=== PATIENT | female | born 1970 | race Hispanic/Latino ===

== ENCOUNTER 2021-06-26 13:05 | Emergency (ER) | payer OTHER, MEDICARE ==
[2021-06-26 16:03] LABS: Basophils # (Auto) 0.1 K/mm3 (0.0-0.1); Basophils % (Auto) 0.6 % (0.0-1.8); Eosinophils # (Auto) 0.2 K/mm3 (0.0-0.4); Eosinophils % (Auto) 1.3 % (0.0-4.3); Hematocrit 39.5 % (30.3-42.9); Hemoglobin 13.2 gm/dl (10.1-14.3); Lymphocytes % (Auto) 7.6 % (13.4-35.0); Mean Corpuscular HGB Conc 33 % (30-34); Mean Corpuscular Volume 89 fl (79-97); Monocytes % (Auto) 7.7 % (0.0-7.3); Platelet Count 266 K/mm3 (140-440); Red Blood Count 4.42 M/mm3 (3.65-5.03); Red Cell Distribution Width 16.1 % (13.2-15.2)
[2021-06-26 16:14] LABS: INR 0.92 (0.87-1.13)
--- NOTE | 2021-06-26 16:22 | XRay Report ---
XR chest 1V ap INDICATION / CLINICAL INFORMATION: CP. COMPARISON: None available. FINDINGS: SUPPORT DEVICES: Right chest wall port catheter tip terminates over the SVC. HEART /PULMONARY VASCULATURE: No significant abnormality. LUNGS / PLEURA: No significant pulmonary or pleural abnormality. No pneumothorax. IMPRESSION: 1. No acute findings. Signer Name: Rolan Coley MD Signed: 06/26/2021 4:18 PM Workstation Name: [id number] [id number]
[2021-06-26 16:25] LABS: Alanine Aminotransferase 25 units/L (7-56); Albumin 3.9 g/dL (3.9-5); BUN/Creatinine Ratio 19; Blood Urea Nitrogen 17 mg/dL (7-17); Calcium 9.7 mg/dL (8.4-10.2); Hemolysis Index 16
[2021-06-26] MEDS ORDERED: HYDROcodone/ACETAMINOPHEN 5-325 MG TAB PO ONE (16:40)
--- NOTE | 2021-06-26 16:57 | Emergency Department Report ---
HPI - HPI HPI: 51-year-old female presents to the emergency department with a complaint of some midsternal to left-sided chest pain and palpitations that started just prior to presentation. The patient pulled into the hospital property in order to fill with her navigation and the symptoms started at this time. She felt weak and called 911 and was brought in by EMS. She has a history of asthma, diabetes, hypertension, aortic regurgitation, gammaglobulin deficiency, and says that she often has "PVCs." The patient follows with Dr. Dan for cardiology and said that she recently had an echocardiogram done but has not yet had the results. She has not taken anything for symptoms prior to presentation. Currently she says that the chest pain is a dull pain, 2 out of 10 in intensity. No known aggravating or alleviating factors. <BIN HUTCHISON - Last Filed: 06/27/21 17:01> <CHAU DURBIN - Last Filed: 06/27/21 21:33> - General Chief Complaint: Chest Pain Time Seen by Provider: 06/26/21 15:20 ED Past Medical Hx - Past Medical History Hx Hypertension: Yes Hx Diabetes: Yes Hx Asthma: Yes Additional medical history: aortic regurgitation <BIN HUTCHISON - Last Filed: 06/27/21 17:01> <CHUA DURBIN - Last Filed: 06/27/21 21:33> - Medications Home Medications: Home Medications Medication Instructions Recorded Confirmed Last Taken Type Albuterol Sulfate [Albuterol 0.63% 0.63 mg IH TID PRN 06/26/21 06/26/21 Unknown History NEBS] Cyclobenzaprine [Flexeril] 10 mg PO TID PRN 06/26/21 06/26/21 Unknown History Dexlansoprazole [Dexilant] 60 mg PO QDAY 06/26/21 06/26/21 Unknown History FLUoxetine [PROzac] 20 mg PO QDAY 06/26/21 06/26/21 Unknown History Fluticasone/Salmeterol [Advair 1 puff IH BID 06/26/21 06/26/21 Unknown History Diskus 500-50 mcg] Gabapentin [Neurontin] 400 mg PO Q8HR PRN 06/26/21 06/26/21 Unknown History Immun Globg(IgG)/Malt/Iga Ov50 60 ml IV QMONTH 06/26/21 06/26/21 Unknown History [Octagam 10% Vial] Irbesartan [Avapro] 75 mg PO QHS 06/26/21 06/26/21 Unknown History Montelukast [Singulair] 10 mg PO QPM 06/26/21 06/26/21 Unknown History Multivitamin with Iron 1 tab QDAY 06/26/21 06/26/21 Unknown History [Multivitamins with Iron] Omeprazole 40 mg PO QAM 06/26/21 06/26/21 Unknown History Pravastatin [Pravachol] 20 mg PO QHS 06/26/21 06/26/21 Unknown History Semaglutide [Ozempic] 1 mg SQ QWEEK 06/26/21 06/26/21 Unknown History dilTIAZem HCl [Diltiazem 24Hr ER 180 mg PO QHS 06/26/21 06/26/21 Unknown History (Cd)] medroxyPROGESTERone ACETATE 150 mg IM [id number] 06/26/21 06/26/21 Unknown History [Depo-Provera] metFORMIN [Glucophage] 500 mg PO BID 06/26/21 06/26/21 Unknown History ED Review of Systems ROS: Stated complaint: chest pain Other details as noted in HPI Comment: All other systems reviewed and negative Constitutional: denies: chills, fever Eyes: denies: eye pain, vision change ENT: denies: ear pain, throat pain Respiratory: denies: cough, wheezing Cardiovascular: chest pain, palpitations. denies: edema Gastrointestinal: denies: abdominal pain, vomiting Genitourinary: denies: dysuria, discharge Musculoskeletal: denies: back pain, arthralgia Skin: denies: rash Neurological: denies: headache, weakness <BIN HUTCHISON - Last Filed: 06/27/21 17:01> ROS: Stated complaint: chest pain Other details as noted in HPI <CHAU DURBIN - Last Filed: 06/27/21 21:33> Physical Exam - Physical Exam Vital Signs: Vital Signs 06/26/21 13:09 Temperature 98.0 F Pulse Rate 100 H Respiratory 16 Rate Blood Pressure 120/80 [Right] O2 Sat by Pulse 98 Oximetry Physical Exam: GENERAL: The patient is well-developed well-nourished. HENT: Normocephalic. Atraumatic. Patient has moist mucous membranes. EYES: Extraocular motions are intact. NECK: Supple. Trachea is midline. CHEST/LUNGS: Clear to auscultation. There is no respiratory distress noted. HEART/CARDIOVASCULAR: Regular. There is no tachycardia. There is no murmur. ABDOMEN: Abdomen is soft, nontender. Patient has normal bowel sounds. Morbidly obese habitus. SKIN: Skin is warm and dry. NEURO: The patient is awake, alert, and oriented. The patient is cooperative. The patient has no focal neurologic deficits. Normal speech. MUSCULOSKELETAL: There is no tenderness or deformity. There is no limitation range of motion. <BIN HUTCHISON - Last Filed: 06/27/21 17:01> - Physical Exam Vital Signs: Vital Signs 06/26/21 06/26/21 06/26/21 13:09 18:35 19:26 Temperature 98.0 F 98.9 F Pulse Rate 100 H 72 72 Respiratory 16 14 15 Rate Blood Pressure 120/80 119/29 127/50 [Right] O2 Sat by Pulse 98 100 99 Oximetry 06/26/21 06/26/21 06/26/21 21:00 21:25 22:08 Temperature Pulse Rate 71 79 Respiratory 15 18 16 Rate Blood Pressure 124/42 177/70 [Right] O2 Sat by Pulse 100 100 Oximetry 06/26/21 22:30 Temperature Pulse Rate 75 Respiratory 12 Rate Blood Pressure 149/34 [Right] O2 Sat by Pulse 100 Oximetry <CHAU DURBIN - Last Filed: 06/27/21 21:33> ED Course Vital Signs 06/26/21 13:09 Temperature 98.0 F Pulse Rate 100 H Respiratory 16 Rate Blood Pressure 120/80 [Right] O2 Sat by Pulse 98 Oximetry - Consultations Consultation #1: 06/26/21 22:59 So far we have attempted to transfer the patient to [facility], [facility], [facility], [facility], [facility] and there are no ICU beds available or these facilities are on medical diversion and cannot accept transfer. <BIN HUTCHISON - Last Filed: 06/27/21 17:01> Vital Signs 06/26/21 06/26/21 06/26/21 13:09 18:35 19:26 Temperature 98.0 F 98.9 F Pulse Rate 100 H 72 72 Respiratory 16 14 15 Rate Blood Pressure 120/80 119/29 127/50 [Right] O2 Sat by Pulse 98 100 99 Oximetry 06/26/21 06/26/21 06/26/21 21:00 21:25 22:08 Temperature Pulse Rate 71 79 Respiratory 15 18 16 Rate Blood Pressure 124/42 177/70 [Right] O2 Sat by Pulse 100 100 Oximetry 06/26/21 22:30 Temperature Pulse Rate 75 Respiratory 12 Rate Blood Pressure 149/34 [Right] O2 Sat by Pulse 100 Oximetry - Reevaluation(s) Reevaluation #1: 06/27/21 00:05 Patient remained stable in the ER was a stable vital sign. Patient received morphine for pain. 06/27/21 00:05 I discussed the patient with the cardiothoracic surgeon at [facility] in [facility]. He stated that they do not have any bed available at this moment. Reevaluation #2: 06/27/21 05:17 Patient remained stable with stable vital sign on esmolol drip. Still waiting for transportation arrangement. Several flight companies has been contacted with no success. - Consultations Consultation #2: 06/27/21 00:56 I discussed the patient with Dr. Masoud Mcpherson, cardiothoracic surgeon at [facility] in [facility], he accepted the patient to be transfer. <CHAU DURBIN - Last Filed: 06/27/21 21:33> ED Medical Decision Making - Lab Data Result diagrams: 06/26/21 15:33 06/26/21 15:33 Lab Results 06/26/21 06/26/21 06/26/21 Range/Units 15:33 15:33 15:33 WBC 12.6 H (4.5-11.0) K/mm3 RBC 4.42 (3.65-5.03) M/mm3 Hgb 13.2 (10.1-14.3) gm/dl Hct 39.5 (30.3-42.9) % MCV 89 (79-97) fl MCH 30 (28-32) pg MCHC 33 (30-34) % RDW 16.1 H (13.2-15.2) % Plt Count 266 (140-440) K/mm3 Lymph % (Auto) 7.6 L (13.4-35.0) % [place] % (Auto) 7.7 H (0.0-7.3) % Eos % (Auto) 1.3 (0.0-4.3) % Baso % (Auto) 0.6 (0.0-1.8) % Lymph # (Auto) 1.0 L (1.2-5.4) K/mm3 [place] # (Auto) 1.0 H (0.0-0.8) K/mm3 Eos # (Auto) 0.2 (0.0-0.4) K/mm3 Baso # (Auto) 0.1 (0.0-0.1) K/mm3 Seg Neutrophils % 82.8 H (40.0-70.0) % Seg Neutrophils # 10.4 H (1.8-7.7) K/mm3 PT 13.4 (12.2-14.9) Sec. INR 0.92 (0.87-1.13) D-Dimer (0-234) ng/mlDDU Sodium 140 (137-145) mmol/L Potassium 4.1 (3.6-5.0) mmol/L Chloride 102.0 (98-107) mmol/L Carbon Dioxide 23 (22-30) mmol/L Anion Gap 19 mmol/L BUN 17 (7-17) mg/dL Creatinine 0.9 (0.6-1.2) mg/dL Estimated GFR > 60 ml/min BUN/Creatinine Ratio 19 % Glucose 156 H (65-100) mg/dL POC Glucose (70-105) mg/dL Calcium 9.7 (8.4-10.2) mg/dL Total Bilirubin 0.30 (0.1-1.2) mg/dL AST 18 (5-40) units/L ALT 25 (7-56) units/L Alkaline Phosphatase 82 (35-129) units/L Troponin T < 0.010 (0.00-0.029) ng/mL Total Protein 6.7 (6.3-8.2) g/dL Albumin 3.9 (3.9-5) g/dL Albumin/Globulin Ratio 1.4 % 01/06/26/21 06/26/21 Range/Units 17:49 17:49 19:28 WBC (4.5-11.0) K/mm3 RBC (3.65-5.03) M/mm3 Hgb (10.1-14.3) gm/dl Hct (30.3-42.9) % MCV (79-97) fl MCH (28-32) pg MCHC (30-34) % RDW (13.2-15.2) % Plt Count (140-440) K/mm3 Lymph % (Auto) (13.4-35.0) % [place] % (Auto) (0.0-7.3) % Eos % (Auto) (0.0-4.3) % Baso % (Auto) (0.0-1.8) % Lymph # (Auto) (1.2-5.4) K/mm3 [place] # (Auto) (0.0-0.8) K/mm3 Eos # (Auto) (0.0-0.4) K/mm3 Baso # (Auto) (0.0-0.1) K/mm3 Seg Neutrophils % (40.0-70.0) % Seg Neutrophils # (1.8-7.7) K/mm3 PT (12.2-14.9) Sec. INR (0.87-1.13) D-Dimer 3394.18 H (0-234) ng/mlDDU Sodium (137-145) mmol/L Potassium (3.6-5.0) mmol/L Chloride (98-107) mmol/L Carbon Dioxide (22-30) mmol/L Anion Gap mmol/L BUN (7-17) mg/dL Creatinine (0.6-1.2) mg/dL Estimated GFR ml/min BUN/Creatinine Ratio % Glucose (65-100) mg/dL POC Glucose 141 H (70-105) mg/dL Calcium (8.4-10.2) mg/dL Total Bilirubin (0.1-1.2) mg/dL AST (5-40) units/L ALT (7-56) units/L Alkaline Phosphatase (35-129) units/L Troponin T < 0.010 (0.00-0.029) ng/mL Total Protein (6.3-8.2) g/dL Albumin (3.9-5) g/dL Albumin/Globulin Ratio % // Range/Units 21:20 WBC (4.5-11.0) K/mm3 RBC (3.65-5.03) M/mm3 Hgb (10.1-14.3) gm/dl Hct (30.3-42.9) % MCV (79-97) fl MCH (28-32) pg MCHC (30-34) % RDW (13.2-15.2) % Plt Count (140-440) K/mm3 Lymph % (Auto) (13.4-35.0) % [place] % (Auto) (0.0-7.3) % Eos % (Auto) (0.0-4.3) % Baso % (Auto) (0.0-1.8) % Lymph # (Auto) (1.2-5.4) K/mm3 [place] # (Auto) (0.0-0.8) K/mm3 Eos # (Auto) (0.0-0.4) K/mm3 Baso # (Auto) (0.0-0.1) K/mm3 Seg Neutrophils % (40.0-70.0) % Seg Neutrophils # (1.8-7.7) K/mm3 PT (12.2-14.9) Sec. INR (0.87-1.13) D-Dimer (0-234) ng/mlDDU Sodium (137-145) mmol/L Potassium (3.6-5.0) mmol/L Chloride (98-107) mmol/L Carbon Dioxide (22-30) mmol/L Anion Gap mmol/L BUN (7-17) mg/dL Creatinine (0.6-1.2) mg/dL Estimated GFR ml/min BUN/Creatinine Ratio % Glucose (65-100) mg/dL POC Glucose (70-105) mg/dL Calcium (8.4-10.2) mg/dL Total Bilirubin (0.1-1.2) mg/dL AST (5-40) units/L ALT (7-56) units/L Alkaline Phosphatase (35-129) units/L Troponin T < 0.010 (0.00-0.029) ng/mL Total Protein (6.3-8.2) g/dL Albumin (3.9-5) g/dL Albumin/Globulin Ratio % - EKG Data -: EKG Interpreted by Me EKG shows normal: sinus rhythm, axis, intervals, QRS complexes, ST-T waves (T wave inversion to the inferior lateral leads) Rate: normal - EKG Data When compared to previous EKG there are: previous EKG unavailable Interpretation: other (Sinus rhythm, 71 bpm, normal axis, normal intervals, T wave inversions to the inferior lateral leads. No ST elevation PA.) - Radiology Data Radiology results: image reviewed interpreted by me: Chest x-ray does not show any acute process. There are no pleural effusions, obvious pneumonia and there is no pneumothorax. No widened mediastinum. - Medical Decision Making This patient presented to the emergency department with a complaint of midsternal to left-sided chest pain with radiation to the back, as well as palpi tations, that started just prior to presentation while she was on hospital property. EKG does not show any morphology consistent with ST elevation myocardial infarction. Chest x-ray does not show any pneumonia, pneumothorax, widened mediastinum, or any other acute process. Patient's labs have been mostly unremarkable including CBC, metabolic panel and negative troponins. However, given the persistent, yet mild chest pain with radiation to the back, as well as the feeling of palpitations, a D-dimer was ordered. It came back at about 3300. Because of this an IV was placed and the patient was sent for CT angiography of the chest. CT angiography of the chest shows a type a aortic dissection from the aortic root down through the thoracic aorta. I have discussed all the lab and imaging results with the patient and she understands the need for transfer to another facility for cardiothoracic surgery and most likely postsurgical ICU care. We have made multiple phone calls thus far in a ttempt to transfer the patient but have been unsuccessful. We will continue to attempt transfer on this patient. She will be signed out to my colleague, Dr Durbin, to continue attempting transfer and assist with disposition. <BIN HUTCHISON - Last Filed: 06/27/21 17:01> - Lab Data Result diagrams: 06/26/21 15:33 06/26/21 15:33 <CHAU DURBIN - Last Filed: 06/27/21 21:33> Critical Care Time: Yes Critical care time in (mins) excluding proc time.: 35 Critical care attestation.: If time is entered above; I have spent that time in minutes in the direct care of this critically ill patient, excluding procedure time. Critical care time was spent on this patient in doing her initial evaluation, multiple reevaluations, ordering and interpretation of labs and imaging, IV analgesia, multiple attempts at transfer for ICU and cardiothoracic surgery, multiple discussions with the patient. Critical Care Time: 35 minutes <BIN HUTCHISON - Last Filed: 06/27/21 17:01> Critical care time in (mins) excluding proc time.: 65 Critical care attestation.: If time is entered above; I have spent that time in minutes in the direct care of this critically ill patient, excluding procedure time. <CHAU DURBIN - Last Filed: 06/27/21 21:33> ED Disposition <BIN HUTCHISON - Last Filed: 06/27/21 17:01> Is pt being admited?: No <CHAU DURBIN - Last Filed: 06/27/21 21:33> Clinical Impression: Aortic dissection, Chest pain Disposition: 51 HOSPICE/MEDICAL FACILITY Condition: Serious Instructions: Nonspecific Chest Pain, Adult Referrals: SARITA HERNANDES,FAMILY [Other] - 3-5 Days HEART Score - HEART Score History: Moderately suspicious EKG: Normal Age: 45-65 Risk factors: > 3 risk factors or hx of atherosclerotic disease Troponin: Troponin T < 0.010 ng/mL (0.00-0.029) 06/26/21 17:49 Troponin: < normal limit HEART Score: 4 - Critical Actions Critical Actions: 0-3 pts:0.9-1.7%risk of adverse cardiac event.Candidate for discharge <BIN HUTCHISON - Last Filed: 06/27/21 17:01> - HEART Score Troponin: Troponin T < 0.010 ng/mL (0.00-0.029) 06/26/21 21:20 <CHAU DURBIN - Last Filed: 06/27/21 21:33>
[2021-06-26] MEDS ORDERED: SODIUM BICARB 8.4% 50 MEQ/50 ML SYRINGE IV ONE (18:00)
[2021-06-26] MEDS ORDERED: EPINEPHrine 1 MG/10 ML SYRINGE ONE (18:00)
[2021-06-26] MEDS ORDERED: CALCIUM CHLORIDE 1,000 MG/10 ML SYRINGE IV ONE (18:00)
[2021-06-26] MEDS ORDERED: SODIUM CHLORIDE 0.9% 1000 ML 1,000 ML IV ONE (20:34)
[2021-06-26] MEDS ORDERED: MORPHINE 4 MG/1 ML INJ IV ONE (20:34)
--- NOTE | 2021-06-26 21:51 | Cat Scan Report ---
CTA CHEST WITH CONTRAST INDICATION / CLINICAL INFORMATION: CP, elevated dimer. TECHNIQUE: Axial CT images were obtained through the chest after injection of IV contrast. 3 plane WI P and/or 3D reconstructions were produced. All CT scans at this location are performed using CT dose reduction for ALARA by means of automated exposure control. COMPARISON: Chest radiograph earlier same day FINDINGS: PULMONARY ARTERIES: No pulmonary emboli. THORACIC AORTA: Type A thoracic aortic dissection extending from the aortic root of the ascending tho racic aorta through the entire descending thoracic aorta into the proximal abdominal aorta. Aortic r oot measures approximately 5.1 cm in axial dimension. 0he true lumen appears more opacified by intrav enous contrast with out evidence of dissection extending into the great vessels of the aortic arch. T he celiac axis, superior mesenteric artery and bilateral renal arteries appear to originate from the true lumen. HEART: No significant abnormality. CORONARY ARTERY CALCIFICATION: None. MEDIASTINUM / IRENA: No significant abnormality. PLEURA: No pleural effusion. No pneumothorax. LUNGS: No acute air space or interstitial disease. ADDITIONAL FINDINGS: Right-sided Port-A-Cath noted with tip terminating in the superior cavoatrial ju nction. UPPER ABDOMEN: No acute findings. SKELETAL STRUCTURES: No significant osseous abnormality. IMPRESSION: 1. Type A thoracic aortic dissection extending from the aortic root and through the entire thoracic aorta and into the proximal abdominal aorta as detailed above. 2. No evidence of pulmonary thromboembolism or other acute intrapulmonary process. CRITICAL RESULT Time of Discovery (CUTCH CLEANER/CDT): 8:35 PM Time of Communication (CUTCH CLEANER/CDT): 8:44 PM Licensed Practitioner Receiving Report: Dr. Bañuelos Read-Back Performed: Yes. Signer Name: Khoa Li MD Signed: 06/26/2021 9:47 PM Workstation Name: [id number]
[2021-06-26] MEDS ORDERED: MONTELUKAST 10 MG TAB PO SCH (23:30)
[2021-06-26] MEDS ORDERED: fentaNYL 100 MCG/2 ML INJ IV ONE (23:32)
[2021-06-27] MEDS ORDERED: MORPHINE 4 MG/1 ML INJ IV ONE ×3 (00:50→06:01)
[2021-06-27] MEDS: ESMOLOL DRIP 2.5 GM/250 ML BAG IV ONE ×2 (00:56→04:49)
[2021-06-27] MEDS ORDERED: ONDANSETRON 4 MG/2 ML INJ IV ONE (04:42)
--- NOTE | 2021-06-27 08:21 | Event Note ---
Date: 06/27/21 51-year-old female with morbid obesity currently in the ER awaiting emergent transfer secondary to type a aortic dissection on esmolol drip developed PEA cardiopulmonary arrest. Chest compressions were started with bagging and intubation was set up. Patient received epinephrine times X2 and Accu-Chek with glucose of 147. Return of spontaneous circulation achieved with a narrow complex bradycardic rhythm rate in the 40s to 50s and systolic pressure of 59. Case we discussed with Dr. Mcpherson accepting cardiothoracic surgeon who states patient has likely ruptured and is no longer a candidate for transfer to their hospital Shortly after completing my phone call patient developed PEA arrest again. She received epi x2 and 1 amp of bicarb without improvement and remained in slow PEA rhythm. Patient likely ruptured her aorta and unfortunately we do not have emergent cardiothoracic capabilities. Time of : 8:33am came to the ED was informed of patients . - Intubation Time Out Performed: Yes Sedative: none Laryngoscope: Ortiz Size: 4 Assist Device Used: fiberoptic device ET Tube Size: 7.5 Tube Secured Depth (cm): 21 Tube Secured Location: lips Tube Placement Confirmation: visualized tube passing t, equal breath sounds bilat, no breath sounds over epi, confirmation by capnometr Patient Tolerated Procedure: well Intubation Complications: none
[2021-06-27] MEDS ORDERED: NORepinephrine/NS 8 MG-250 ML 8 MG/250 ML INFUS..BTL IV SCH (09:00)
[2021-06-27 09:30] VITALS: BP 64/37
--- NOTE | 2021-07-05 12:23 | Electrocardiograph Report ---
[facility] Test Date: 2021-06-26 Test Time: 14:41:32 Pat Name: SHEYLA NAVA Department: Room: Gender: F [employer]: LAUREN : 1970 Requested By: BIN HUTCHISON Order Number: [id number] Reading MD: Jeannine Hernandez Measurements Intervals Brooks Rate: 71 P: 37 NV: 169 QRS: 11 QRSD: 86 T: 18 QT: 412 QTc: 447 Interpretive Statements Sinus rhythm Anteroseptal infarct, old Inferolateral T wave abnormality, consider ischemia No previous ECG available for comparison Electronically Signed On 07-05-2021 12:22:58 EST by Jeannine Hernandez
== END 2021-06-27 17:00 | disposition hospice, inpatient (51) ==
LOC: ED 13:05
DX: I71.00 Dissection of unspecified site of aorta (principal); R07.9 Chest pain, unspecified; I10 Essential (primary) hypertension; E11.8 Type 2 diabetes mellitus with unspecified complications; J45.909 Unspecified asthma, uncomplicated
CPT/HCPCS: 31500; 36415; 71045; 71275; 80053; 82962; 84484; 85025; 85379; 85610; 92950; 93005; 96361; 96365; 96366; 96375; 96376; 99291; J0171; J2270; J2405; J3010; J3490; J7030; Q9967; 94002; Q0162